=== PATIENT | female | born 1975 | race Caucasian/White ===

== ENCOUNTER → 2017-09-01 14:48 | Outpatient (CLI) | payer BC, SELFPAY ==
[2017-09-05 12:08] LABS: HPV APTIMA, High Risk Negative (Negative)
== END ==
PROVIDERS: Family Provider Student in an Organized Health Care Education/Training Program; PCP Student in an Organized Health Care Education/Training Program; Visit Provider Obstetrics & Gynecology
DX: Z12.4 Encounter for screening for malignant neoplasm of cervix (principal)
CPT/HCPCS: 88175; G0145

== ENCOUNTER → 2019-03-28 | Outpatient (CLI) | payer BC, SELFPAY ==
[2019-03-18 08:39] VITALS: BMI 30.2
--- NOTE | 2019-03-28 07:39 | BI_ITS ---
BILATERAL DIGITAL MAMMOGRAM WITH TOMOSYNTHESIS: Mediolateraloblique and craniocaudal views demonstrate no evidence of dominant parenchymal masses. No cluster of microcalcifications or architectural distortion is seen. No evidence of skin thickening is seen. No comparison images are available. Breast Density: The breast tissue is extremely dense which may lower the sensitivity of mammography. CAD was used to assist in final assessment. BI/SCREEN MAMM (CAD) W/ANUPAMA BILAT IMPRESSION: NORMAL MAMMOGRAM BILATERALLY. ASSESSMENT CATEGORY: FINAL ASSESSMENT: BI-RAD CATEGORY I (NEGATIVE) YEARLY MAMMOGRAPHY RECOMMENDED Approximately 10% of breast cancers are not detected by mammography. A normal mammogram should not delay biopsy of a clinically suspicious abnormality. [id number] Electronically Signed: Lenard Drake, at 17:00 EDT Tel , Service support ,
--- NOTE | 2019-03-28 07:39 | US_ITS ---
STUDY: ULTRASOUND TRANSVAGINAL CLINICAL: Female, 43 years old. Pain TECHNIQUE: Transvaginal COMPARISON: None FINDINGS: Normal uterine size measuring 9.1 x 5.7 x 4.6 cm in maximal craniocaudal dimension. There are no myometrial masses. Normal endometrial thickness measuring 5 mm. There are no endometrial masses, and there is no fluid in the endometrial cavity. Normal uterine cervix. Normal right ovary, measuring 2.3 x 3 x 2.5 cm. There are multiple follicles without a dominant cyst. Normal left ovary, measuring 3.9 x 2.6 x 2.3 cm. There is a left ovarian 1.9 x 1.9 x 1.2 cm cyst. There is no free fluid in the pelvis. US/Pelvic (Non ) IMPRESSION: No acute pelvic pathology identified. Dominant left ovarian cyst. Electronically Signed: Alirio Valerio, at 20:58 EDT Tel , Service support ,
--- NOTE | 2019-03-28 07:39 | US_ITS ---
STUDY: ULTRASOUND TRANSVAGINAL CLINICAL: Female, 43 years old. Pain TECHNIQUE: Transvaginal COMPARISON: None FINDINGS: Normal uterine size measuring 9.1 x 5.7 x 4.6 cm in maximal craniocaudal dimension. There are no myometrial masses. Normal endometrial thickness measuring 5 mm. There are no endometrial masses, and there is no fluid in the endometrial cavity. Normal uterine cervix. Normal right ovary, measuring 2.3 x 3 x 2.5 cm. There are multiple follicles without a dominant cyst. Normal left ovary, measuring 3.9 x 2.6 x 2.3 cm. There is a left ovarian 1.9 x 1.9 x 1.2 cm cyst. There is no free fluid in the pelvis. US/Transvaginal Non- IMPRESSION: No acute pelvic pathology identified. Dominant left ovarian cyst. Electronically Signed: Alirio Valerio, at 20:58 EDT Tel , Service support ,
== END | disposition home or self-care (01) ==
PROVIDERS: Family Provider Student in an Organized Health Care Education/Training Program; PCP Student in an Organized Health Care Education/Training Program; Referring Provider Nurse Practitioner Women's Health; Visit Provider Nurse Practitioner Women's Health
DX: R10.2 Pelvic and perineal pain (principal); R31.9 Hematuria, unspecified; Z12.31 Encounter for screening mammogram for malignant neoplasm of breast
CPT/HCPCS: 76830; 76856; 77063; 77067; 87086; 93976

== ENCOUNTER → 2019-04-11 | Outpatient (CLI) | payer BC, SELFPAY ==
[2019-03-18 08:39] VITALS: BMI 30.2
--- NOTE | 2019-04-11 07:54 | CT_ITS ---
STUDY: CT ABDOMEN AND PELVIS WITH AND WITHOUT CONTRAST REASON FOR EXAM: Female, 43 years old. Gross hematuria for one year. Urinary frequency. No history of surgery. RADIATION DOSAGE (If Supplied By Facility): CTDIvol = ( 20.97 ) mGy, DLP = ( 3263.35 ) mGycm TECHNIQUE: Transaxial images were obtained from the dome of the diaphragm to the symphysis pubis without oral contrast. IV Isovue 370 100mL was administered. Sagittal and coronal images were reconstructed. Individualized dose optimization techniques were used for this CT. COMPARISON: None. FINDINGS: There is minimal posterior dependent atelectasis, remainder of the visualized lung bases are unremarkable. The visualized portions of the heart are within normal limits. Normal liver. Normal gallbladder and extrahepatic biliary system. Normal spleen. Normal pancreas. Normal bilateral adrenal glands. There is a right middle renal pole stone measuring 6 mm. Otherwise normal right kidney. Normal left kidney. Normal visualized stomach. Normal small intestine. Is multilevel diverticulosis with no signs of diverticulitis. The appendix is visualized and appears normal. Normal abdominal aorta. Normal inferior vena cava. Normal retroperitoneum. The urinary bladder is partially distended with diffuse thickening of the wall, cannot exclude cystitis. The uterus is anteverted with enlargement of the venous structures bilaterally and tortuosity, left more than right, cannot exclude pelvic congestion syndrome. There are 2 adjacent left-sided adnexal cysts throughout there is a thin septation measuring 4.1 x 4.3 cm and 2.9 x 2.1 cm. Normal abdominal wall. There is minimal atelectasis of L5 on S1 with pars defect of L5. CT/CT Abd/Pelvis W/WO Contrast IMPRESSION: Left-sided ovarian cyst as described above measuring 4.3 cm and 2.9 cm in maximum dimension. Possible pelvic congestion syndrome, clinical correlation recommended. Mild thickening of urinary bladder wall which may indicate sequela of cystitis. Correlation with urinalysis recommended. Right middle pole renal stone measuring 6 mm. Remainder of abdominal viscera are unremarkable. Electronically Signed: Hellen Mischiu, MD at 2:26 EDT , Service support ,
== END | disposition home or self-care (01) ==
PROVIDERS: Family Provider Student in an Organized Health Care Education/Training Program; PCP Student in an Organized Health Care Education/Training Program; Referring Provider Urology; Visit Provider Urology
DX: R31.9 Hematuria, unspecified (principal); R39.89 Other symptoms and signs involving the genitourinary system
CPT/HCPCS: 74178; Q9967

== ENCOUNTER 2019-04-30 06:01 | Day surgery (SDC) | payer BC, SELFPAY ==
[2019-03-18 08:39] VITALS: BMI 30.2
[2019-04-30] VITALS (9 sets, daily range): BP systolic 100–137; BP diastolic 64–85; PULSE 74–108; RESP 16; TEMP 36.1–36.5; O2SAT 96–99; BMI 33.0
[2019-04-30 06:26] LABS: Internal QC Validated? YES +Cl - CLEAR BKGD; Pregnancy, Urine Negative Negative
[2019-04-30] MEDS: Lactated Ringers 1,000 ML 100 ML IV (06:33)
[2019-04-30] MEDS: Cefazolin 2 GM in 0.9% Normal Saline 100 ML IV (07:40)
--- NOTE | 2019-04-30 07:40 | OP.PCM_ITS ---
Problem List (1) Nocturia Status: Acute (2) Urgency of urination Status: Acute Comment: [place] of Myrbetriq and pelvic floor physical therapy (3) Dyspareunia Status: Acute (4) Frequency of micturition Status: Acute Report of Operation Date of Procedure: 04/30/19 Pre-Operative Diagnosis: urgency, frequency, nocturia, dyspareunia Post-Operative Diagnosis: same Surgery/Procedure Performed:: cystoscopy, hydrodistention, pelvic exam under anesthesia Description of Surgical Findings:: capacity 450cc. No glomerulations, no ulcerations. Mild trabeculation detrusor. Type of Anesthesia:: General Description of Procedure: The patient is a 43-year-old female with severe urinary frequency and urgency, nocturia and dyspareunia here for evaluation for possibility of diagnosis of interstitial cystitis. Informed consent was obtained. The patient was taken to the operating room placed on the operating room table. Anesthesia monitored the head, neck, airway, IV access and vital signs t hroughout the case. Once anesthesia was appropriately administered, the patient was placed in dorsal lithotomy position and was prepped and draped in usual sterile fashion. A pelvic examination was performed revealing no palpable trigger points in the pelvic floor, no pelvic organ prolapse. The cystoscope was inserted under direct visualization into the urinary bladder. Using a 70 degree lens, the entirety of the bladder mucosa was visualized. There were no masses, lesions, areas of erythema, ulcerations or foreign bodies identified. The ureteral orifices were located on the area of the trigone in correct anatomic position. The bladder was then filled to capacity and it was obvious that her capacity is very small, the detrusor muscles obviously trabeculated and thickened and there were no obvious diverticula present. The bladder was left to sit for 2 minutes at capacity which was measured at 450 cc. There is no terminal hematuria. There were no glomerulations identified upon reentry into the urinary bladder. Once again the bladder was filled to capacity left to sit for 2 minutes and then emptied. The capacity was approximately 500 cc. At this time the patient was awakened and taken to the recovery room in good condition. There were no complications during this procedure. - Complications none - Admit VTE Documentation VTE Present on Admission: Yes VTE Mechan Device Prophylaxis: SCD's VTE Pharm Prophylaxis ordered?: No
--- NOTE | 2019-04-30 07:41 | DCINST_ITS ---
Discharge Diet: No Restrictions Discharge Activity: May not drive while taking narcotic pain medications. Call your doctor if you observe: Fever of 101 or Higher, Inability to urinate, Shortness of breath, Chest pain, Calf discomfort, Uncontrolled pain Allergies/Adverse Reactions: Allergies No Known Allergies Allergy (Verified 04/24/19 11:44) Medications to take at Discharge multivitamin tablet 1 tab PO DAILY 03/18/19 norgestimate 0.25 mg-ethinyl estradiol 35 mcg tablet 1 tab PO QDAY #84 tab 03/18/19 Primary Care Physician: Donnie Peacock DO [Primary Care Provider] - Test Results: Test results from this visit will be discussed in further detail at your follow- up appointment, if applicable. Please Follow Up With: Molly Campbell MD When: call office for appt. Proposed Discharge Date: 04/30/19
[2019-04-30] MEDS: Lubricating Jelly 60 GM Tube 30 GM TOPICAL (07:52)
== END 2019-04-30 10:03 | disposition home or self-care (01) ==
LOC: SDC 06:04 → AC 06:04
PROVIDERS: Family Provider Student in an Organized Health Care Education/Training Program; PCP Student in an Organized Health Care Education/Training Program; Referring Provider Urology; Visit Provider Urology
PROC: 0T7B7ZZ Dilation of Bladder, Via Natural or Artificial Opening (ICD-10-PCS; CPT 52000; principal; 2019-04-30 07:20)
DX: R35.1 Nocturia (principal); R39.15 Urgency of urination; N94.10 Unspecified dyspareunia; R35.0 Frequency of micturition; Z87.440 Personal history of urinary (tract) infections; Z87.891 Personal history of nicotine dependence
CPT/HCPCS: 00910; 52000; 81025; J7120; J2405

== ENCOUNTER → 2020-12-11 06:36 | Outpatient (CLI) | payer BC, SELFPAY ==
[2019-04-30 06:21] VITALS: BMI 33.0
--- NOTE | 2020-12-11 06:42 | MRI_ITS ---
History: SPONDYLOSIS WITH RADICULOPATHY Technique: T1 and T2 MR imaging of the lumbar spine performed without contrast enhancement in axial and sagittal planes. CT abdomen and pelvis April 11, 2019 Findings: Alignment of the lumbar vertebral bodies is normal. No bone marrow edema. No significant disc space narrowing. Mild facet arthropathy at L4-5 and L5-S1. Conus medullaris and cauda equina are normal. Paraspinal soft tissues are normal. L1-2: No disc protrusion. Normal caliber spinal canal and neural foramina. L2-3: No disc protrusion. Normal caliber spinal canal and neural foramina. L3-4: No disc protrusion. Normal caliber spinal canal and neural foramina. L4-5: Left central disc protrusion causes narrowing of the left lateral recess. No significant spinal or neuroforaminal stenosis. L5-S1: Large left posterolateral disc herniation causes marked narrowing of the lateral recess and adjacent foramen. No significant spinal stenosis. MRI/Spine Lumbar (Routine) IMPRESSION: L4-5 and L5-S1 disc herniations causing narrowing of the left lateral recess at L4-5 and left lateral recess and left neural foramen at L5-S1. at 1553 Reported and signed by: Librado Quinteros MD Electronically Signed: Librado Quinteros MD at 15:52 EDT Tel , Service support ,
== END ==
PROVIDERS: PCP Student in an Organized Health Care Education/Training Program; Referring Provider Orthopaedic Surgery; Visit Provider Orthopaedic Surgery
DX: M47.26 Other spondylosis with radiculopathy, lumbar region (principal)
CPT/HCPCS: 72148

== ENCOUNTER → 2022-06-06 | Outpatient (CLI) | payer BC, SELFPAY | END | disposition home or self-care (01) | LOC: LABSPEC 11:06 | PROVIDERS: PCP Student in an Organized Health Care Education/Training Program; Visit Provider Registered Nurse | DX: R30.0 Dysuria (principal) | CPT/HCPCS: 87086; 87088 ==

== ENCOUNTER → 2022-07-11 | Outpatient (CLI) | payer BC, SELFPAY ==
[2022-07-11 09:06] LABS: Absolute Lymphocyte Count 1.11 X10^3/uL (0.83-4.51); Absolute Neutrophil Count 2.7 X10^3/uL (2.0-7.7); Basophil# 0.01 X10^3/uL; Basophil% 0.2 % (0-1); Eosinophil# 0.08 X10^3/uL; Eosinophils% 1.9 % (0-5); Hematocrit 44.8 % (37-47); Hemoglobin 14.6 g/dL (12.0-15.0); Lymphocyte # 1.11 X10^3/ul (0.83-4.51); Lymphocyte % 26.9 % (19-41); Mean Corp Hgb Conc 32.6 g/dL (32-36); Mean Corpuscular Hgb 30.9 pg (27.0-32.0); Mean Corpuscular Volume 94.9 fL (81-99); Mean Platelet Vol. 9.1 fl (6.2-12.0); Monocyte# 0.25 X10^3/uL; Monocyte% 6.1 % (0-10); NRBC Flagged by Analyzer 0 % (0-5); Neutrophil # 2.65 X10^3/uL (2.7-7.7); Neutrophil % 64.4 % (47-70); Platelet Count 247 K/mm3 (150-450); RBC Distribution Width CV 11.9 % (11.6-14.6); RBC Distribution Width SD 41.9 fl (35.1-43.9); Red Blood Count 4.72 M/mm3 (4.2-5.4); White Blood Count 4.1 K/mm3 (4.4-11.0)
[2022-07-14 18:50] LABS: HPV APTIMA, High Risk Negative (Negative)
== END | disposition home or self-care (01) ==
PROVIDERS: Registered Nurse; PCP Student in an Organized Health Care Education/Training Program; Referring Provider Nurse Practitioner Women's Health; Visit Provider Nurse Practitioner Women's Health
DX: Z12.4 Encounter for screening for malignant neoplasm of cervix (principal); N92.0 Excessive and frequent menstruation with regular cycle
CPT/HCPCS: 36415; 85025; 87624; 88175; G0145

== ENCOUNTER → 2022-07-26 | Outpatient (CLI) | payer BC, SELFPAY ==
--- NOTE | 2022-07-26 16:30 | EMB_PTH ---
PATIENT: CHUCK BECK LOC: [facility] U#:[id number] AGE/SX: 46/F ROOM: RE07/26/[address]: Dr. Maryjo Isaacs DO : 1975 BED: DIS: 07/26/2022 SPEC #: [id number] RECD: 07/26/22 17:37 STATUS: ROSANGELA RICKS #: [id number] LEVY: 07/26/22 16:[address]: Maryjo Isaacs DEPT: SURGICAL PATHOLOGY RECD BY: Yumiko Infante ENTERED: 07/27/22 08:33 SP TYPE: ENDOM BX/C AIDAHR DR: Dr. Laci Devlin DO Tissues: Endometrium, NOS Procedures: Surgery Specimen Level IV HEADER OPERATION: Endometrial biopsy PRE-OP DIAGNOSIS: Heavy menses TISSUE SUBMITTED: Endometrial lining MICROSCOPIC DIAGNOSIS Endometrial biopsy: Secretory endometrium. SJ:anuj 07/28/2022 MICROSCOPIC DESCRIPTION Slides are reviewed. GROSS DESCRIPTION Received is one container labeled with the patient's name and not further designated. The specimen consists of multiple irregular fragments of pink soft tissue that in aggregate measure 2.5 x 2.5 x 0.2 cm. The specimen is totally submitted in one cassette. / SJ:anuj 07/27/2022 TC:4 CPT: 08633
== END | disposition home or self-care (01) ==
PROVIDERS: PCP Student in an Organized Health Care Education/Training Program; Visit Provider Obstetrics & Gynecology
DX: N92.0 Excessive and frequent menstruation with regular cycle (principal)
CPT/HCPCS: 88305

== ENCOUNTER 2022-09-13 13:48 | Day surgery (SDC) | payer BC, SELFPAY ==
[2022-09-13] VITALS (8 sets, daily range): BP systolic 113–127; BP diastolic 73–79; PULSE 72–84; RESP 15–16; TEMP 36.1–36.5; O2SAT 95–100; BMI 30.7
--- NOTE | 2022-09-13 11:26 | PCM.HP.BLA ---
History and Physical Date of Admission: 09/13/22 Intake Vital Signs ? 08/30/2310:06 08/30/2310:08 Height 5 ft 6 in 5 ft 6 in Weight: 192 lb ? BMI 30.9 ? BP 127/79 H ? 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 Abnormal Pap smear of cervix Anxiety and depression Urge incontinence Social History? Smoking Status:? Former smoker alcohol intake:? never substance use type:? does not use caffeine:? Yes what type of physical activity do you participate in:? none seatbelt use:? always do you feel safe at home:? Yes additional social history:? 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 Pt states that she passes large clots. She has called her insurance company and they will not cover a hysterectomy until she has tried an ablation procedure first. Her uterus measures 9 cm without fibroids.? Her EMB was benign.? She is scheduled for a uterine ablation procedure. History ? ? ? 2 ? Elective abortions ? Hx Para ? ? ? 2 ? Spontaneous abortions ? Hx # Term Pregnancies ? Ectopic pregnancies ? Hx # Pregnancies ? Multiple births ? # of living children ? Past Pregnancies Del. Date Name GA/Weeks Outcome Route Bth Weight Infant Gen Labor Lgth Anesthesia Del Locatn Provider FOB Unknown 2000 uJmana ? Unknown 2004 Kristie ? ROS Const ROS Unobtainable: All systems reviewed & are unremarkable except as noted in H Resp Resp: Reports system reviewed and no additional complaints, except as documented; Denies cough GI GI: Reports as per HPI Psych Psych: Reports system reviewed and no additional complaints, except as documented Exam Const General: cooperative, healthy appearing, comfortable and no acute distress Resp Effort & Inspection: normal respiratory effort Skin General: no rashes or lesions noted Psych Appearance: grossly normal Speech and Movement: speech and movement normal Coding Level of Care Code Off vis,est,level 4 Diagnoses Heavy menses? N92.0 Assessment and Plan Assessment and Plan (1) Heavy menses: ?Status:?Acute ?Comment: CBC. Nl US.? Ariella JV for surgical consult/most interested in ablation Plan plan for hysteroscopy radha ablation After discussing the patient's diagnosis and treatment plan options, patient wishes to proceed with surgical management.? I have discussed with the patient the risks, benefits, and alternatives of the procedure which include but are not limited to risks of anesthesia, bleeding, infection, possible damage to bowel, bladder, or surrounding vasculature which could lead to additional surgery to evaluate any complications.? Patient agrees to procedure and wishes to proceed.? ACOG/uptodate references given for additional information regarding procedure.?
[2022-09-13 14:27] LABS: Internal QC Validated? YES +Cl - CLEAR BKGD; Pregnancy, Urine Negative Negative
[2022-09-13 14:36] LABS: Hematocrit 41.3 % (37-47); Hemoglobin 13.9 g/dL (12.0-15.0); Mean Corp Hgb Conc 33.7 g/dL (32-36); Mean Corpuscular Hgb 32.1 pg (27.0-32.0); Mean Corpuscular Volume 95.4 fL (81-99); Mean Platelet Vol. 9.3 fl (6.2-12.0); Platelet Count 217 K/mm3 (150-450); RBC Distribution Width CV 12.8 % (11.6-14.6); RBC Distribution Width SD 45.1 fl (35.1-43.9); Red Blood Count 4.33 M/mm3 (4.2-5.4)
--- NOTE | 2022-09-13 15:15 | EMB_PTH ---
PATIENT: CHUCK BECK LOC: [facility] [place] U#:[id number] AGE/SX: 46/F ROOM: RE09/13/[address]: Dr. Maryjo Isaacs DO : 1975 BED: DIS: 09/13/2022 SPEC #: [id number] RECD: 09/14/22 09:48 STATUS: ROSANGELA RICKS #: [id number] LEVY: 09/13/22 15:[address]: Maryjo Isaacs DEPT: SURGICAL PATHOLOGY RECD BY: Yumiko Infante ENTERED: 09/14/22 11:35 SP TYPE: ENDOM BX/C OTHR DR: Dr. Laci Devlin DO Tissues: Endometrium, NOS Procedures: Surgery Specimen Level IV HEADER OPERATION: Radha ablation, D & C PRE-OP DIAGNOSIS: Heavy menses TISSUE SUBMITTED: Endometrial curettings MICROSCOPIC DIAGNOSIS Endometrium, curettings: Secretory endometrium. AM:anuj 09/15/2022 MICROSCOPIC DESCRIPTION Slides are reviewed. GROSS DESCRIPTION Received in fixative is one container labeled with the patient's name and designated endometrial curettings. The specimen consists of multiple irregular fragments of pink-ovalle soft tissue that in aggregate measure 7.0 x 5.0 x 0.2 cm. The specimen is totally submitted in two cassettes. / AM:anuj 09/14/2022 TC:5 CPT: 66416
--- NOTE | 2022-09-13 15:55 | DCINST_ITS ---
Discharge Instructions Diet Discharge Diet: No restrictions Activity Discharge Activity: Return to Normal Activity, May Shower and May Take a Tub Bath (after 1 week) May resume sexual activity in: 1-2 weeks Weight Bearing Status: Weight bearing as tolerated Lifting Restrictions: none Dressing / Incision Call your doctor if you observe: Fever of 101 or Higher, Using more than 1 pad per hour, Shortness of breath and Uncontrolled pain Follow Up Care Please Follow Up With: Maryjo Isaacs DO When: Call [phone] to schedule appointment. Test Results: Test results from this visit will be discussed in further detail at your follow- up appointment, if applicable. Discharge Plan Admission Primary Reason for Your Visit: hysteroscopy D&C, adelaida ablation Attending Provider: Maryjo Isaacs Primary Care Provider: Laci Devlin Discharge Orders/Prescriptions Prescriptions: New oxycodone-acetaminophen [Percocet] 5-325 mg tablet 1 tab PO Q4H PRN (Reason: pain) 7 Days Qty: 15 0RF Rx Instructions: 1-2 tabs q 4 hrs as needed for pain naproxen 500 mg tablet 500 mg PO BID PRN (Reason: pain) Qty: 30 0RF Continued multivitamin Tablet 1 tab PO DAILY citalopram 20 mg tablet 20 mg PO DAILY Referrals / Follow Up: Laci Devlin DO [Primary Care Provider] - Disposition Disposition (needs filled in before D/C Order can be placed): Home, Self Care
--- NOTE | 2022-09-13 17:09 | PCM.OP.BLANK ---
Problems Associated Problem List Diagnoses (1) Heavy menses: Operative Report Date of Procedure: 08/10/21 preoperative diagnosis: heavy menses Postoperative diagnosis: heavy menses Surgeon: Dr. Maryjo Isaacs DO EBL: minimal (less than 5 cc) urine output: 100cc findings: proliverative appearing endometrium, possible posterior uterine polpy specimens removed: endometrial curettings Procedure: Hysteroscopy D&C Radha albation Details of the procedure: Patient was prepped and draped in a normal sterile fashion under MAC anesthesia. A weighted speculum was placed in the vagina and the anterior lip of the cervix was grasped with a single-tooth tenaculum. A paracervical block was placed with 1% lidocaine. Cervix was progressively dilated to allow passage of a 5 mm hysteroscope. The lining was fully visualized and noted to have a proliferative appearing lining. Uterine sounded to 9 cm. The cervix length was measured at 4.5 cm. A Curettage was performed and specimen was sent to pathology. Next the radha device was inserted into the uterus. The bulb was inflated and the device passed 2 safety checks. The device was activated and a burn for [address] A second look with the hysteroscope showed adequate burning of the endometrium. All instruments were removed from the vagina and excellent hemostasis was noted. Patient was awoken and taken to recovery in stable condition. Procedures Urinary/Genital 52xxx-59xxx: 43317 Hysteroscopy, EMC,Polypectomy Multi Select Codes Urinary/Genital Urinary/Genital CPT Codes: 99139 Hysteroscopy,EMC, Polypectomy
[2022-09-13] MEDS: HYDROcodone Bitartrate/Apap 5/325 Tablet PO (18:04)
== END 2022-09-13 18:45 | disposition home or self-care (01) ==
LOC: SDC 13:51 → AC 13:51
PROVIDERS: Anesthesiology; PCP Student in an Organized Health Care Education/Training Program; Referring Provider Obstetrics & Gynecology; Visit Provider Obstetrics & Gynecology
PROC: 0U5B8ZZ Destruction of Endometrium, Via Natural or Artificial Opening Endoscopic (ICD-10-PCS; CPT 58558; principal; 2022-09-13 15:00)
DX: N92.0 Excessive and frequent menstruation with regular cycle (principal); Z87.891 Personal history of nicotine dependence
CPT/HCPCS: 58558; 00952; 81025; 85027; 86850; 86900; 86901; 88305; J7120; J2405

== ENCOUNTER → 2023-07-18 | Outpatient (CLI) | payer BC, SELFPAY ==
--- OUTSIDE RECORDS SUMMARY | 2023-07-18 07:20 | XMS RPT_ITS | CCD ---
Author Name Unknown Address [address] [place] [address] Organization [facility] Care Team Providers Care Boiler Room Helper Name Role Phone Donnie Peacock Primary Care Provider [phone] Edith Evans Unavailable Unavailable Ector Sierra Unavailable DR MI GARCIA DO Primary Care Physician [phone] MI GARCIA Attending Unavailable MI GARCIA Primary Care Unavailable MI GARCIA Primary Care Unavailable PATO FITZGERALD Attending Unavailable Medications Current Medications Medication Drug Class(es) Dates Sig (Normalized) Sig (Original) 8 hr acetaminophen 650 mg extended release oral tablet (2 sources) Start: 12-30-2020 Tylenol 8 HR Arthritis Pain 650 mg oral tablet, extended release Dose : 1,300 mg = 2 tab(s), Oral, q8h, 0 Refill(s) Start Date: 12/30/20 Status: Ordered citalopram 20 mg oral tablet (2 sources) Serotonin Reuptake Inhibitor Start: 09-30-2020 citalopram 20 mg oral tablet Dose : 20 mg = 1 tab(s), Oral, qDay, 0 Refill(s) Start Date: 09/30/20 Status: Ordered Problems Problem Classification Problem Date Documented Da te Episodic/Chronic Calculus of urinary tract (2 sources) Kidney stone 10-09-2020 Episodic Diabetes mellitus without complication (4 sources) Hyperglycemia; Translations: [Prediabetes] 10-01-2020 Episodic Diseases of white blood cells (2 sources) Leukopenia 2020 Chronic Intracranial injury (2 sources) History of concussion injury of brain 09-30-2020 Episodic Mood disorders (2 sources) Recurrent major depressive episodes, moderate 09-30-2020 Chronic Other acquired deformities (2 sources) Spondylolisthesis 10-09-2020 Episodic Other acquired deformities (2 sources) Spondylolysis 10-09-2020 Episodic Other and ill-defined heart disease (2 sources) 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 Other female genital disorders (1 source) Enlarged uterus 03-23-2022 Episodic Other gastrointestinal disorders (1 source) Abdominal mass 03-23-2022 Episodic Other liver diseases (2 sources) Steatosis of liver 11-06-2020 Chronic Other liver diseases (2 sources) Elevated liver enzymes level 10-01-2020 Episodic Other lower respiratory disease (2 sources) Dyspnea on exertion 09-30-2020 Episodic Other nervous system disorders (2 sources) Numbness and tingling sensation of skin 09-30-2020 Episodic Other nutritional; endocrine; and metabolic disorders (2 sources) Body mass index 30+ - obesity 12-03-2020 Chronic Other skin disorders (2 sources) Loss of hair 09-30-2020 Episodic Residual codes; unclassified (1 source) Family history of carrier of genetic disease; Translations: [Family history of gene mutation] Episodic Residual codes; unclassified (1 source) Family history of malignant neoplasm of digestive organs; Translations: [Family history of gastric cancer] Episodic Rheumatoid arthritis and related disease (2 sources) Arthropathy of lumbar facet joint 12-30-2020 Chronic Spondylosis; intervertebral disc disorders; other back problems (4 sources) Disorder of lumbar disc; Translations: [Prolapsed lumbar intervertebral disc] 12-30-2020 Chronic Spondylosis; intervertebral disc disorders; other back problems (2 sources) Chronic low back pain 09-30-2020 Episodic Thyroid disorders (2 sources) Goiter 09-30-2020 Chronic Unclassified (2 sources) Glomerular filtration rate decreased 10-01-2020 Results Test Name Value Interpretation Reference Range Facil ity Encounters Encounter Date Encounter Type Care Provider Facility Start: 04-19-2022 End: 04-20-2022 ambulatory MI GARCIA Facility:[facility] Start: 04-19-2022 End: 04-19-[address] MI GARCIA DO 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 [facility] Start: 06-29-2020 End: 06-29-2020 Subsequent hospital visit by physician Ector Sierra Work Phone: [facility] Procedures Date Procedure Procedure Detail Performing Clinician Tonsillectomy and adenoidectomy PATO FITZGERALD DIAL SCREW ASSEMBLER-WOUND CARE SPECIALIST Plan of Treatment Date Care Activity Detail Author Start: 02-18-2020 FLU (#1) FLU (#1) [facility] Start: 1996 Hepatitis B (1 of 3 - Risk 3-dose series) Hepatitis B (1 of 3 - Risk 3-dose series) [facility] Start: 1993 MenB (1 of 2 - MenB 2-Dose Series) MenB (1 of 2 - MenB 2-Dose Series) [facility] Start: 1984 Tetanus Diphtheria a nd Pertussis Vaccines (1 - Tdap) Tetanus Diphtheria and Pertussis Vaccines (1 - Tdap) [facility] Start: 1978 Hepatitis A (1 of 2 - Risk 2-dose series) Hepatitis A (1 of 2 - Risk 2-dose series) [facility] Start: 1978 MMR (1 of 1 - Standa rd series) MMR (1 of 1 - Standard series) [facility] Start: 1978 Varicella (1 of 2 - 2-dose childhood series) Varicella (1 of 2 - 2-dose childhood series) [facility] End: 06-29-2020 Genetic Sendout: Single Gene: CDH1 Genetic Sendout: Single Gene: CDH1 Lab Timed Family history of gene mutation Family history of gastric cancer 1 Occurrences starting 06/29/2020 until 06/29/2020 [facility] Payers Date Payer Category Payer Unknown [id number] 2018 Unknown BARB JUAREZ BS PPO [id number] 2018-Present [address] [place] [address] [id number] 1975 Unknown [id number] 1975 Unknown [id number] Social History Date Type Detail Facility Start: 06-29-2020 End: 09-30-2020 Tobacco smoking status LAIS Never smoker [facility] Start: 06-29-2020 Tobacco use and exposure Never used [facility] Start: 1975 Sex Assigned At Not on file A [facility] Exposure to SARS-CoV -2 (event) Not sure [facility] Sex Assigned At Sex [facility] Clinical Notes 11-03-2020 to 04-19-2022 RadiologyRadiology Note Date & Type Note Facility 04-19-2022 Note ORIGINAL EXAMINATION: PELVIC ULTRASOUND 04/19/2022 TECHNIQUE: Transabdominal and endovaginal pelvic ultrasound was performed. Color Doppler interrogation performed. COMPARISON: None HISTORY: ORDERING SYSTEM PROVIDED HISTORY: Reason for Exam: enlarged uterus on exam FINDINGS: Measurements: Uterus: 8.9 x 5.1 x 4.4 cm Endometrial stripe: 13 mm Right Ovary:3.3 x 1.6 x 1.7 cm Left Ovary: 4.2 x 2.6 x 1.9 cm Ultrasound Findings: Uterus: The uterus is retroverted. No focal myometrial masses are identified. Endometrial stripe: Endometrium is homogeneous with no focal lesions seen. Right Ovary: Right ovary is within normal limits. Left Ovary: Left ovary is within normal limits. A rounded echogenic portion of the left ovary measuring 19 mm in size is noted, probably the result of a ruptured follicle. Ovarian color Doppler interrogation is unremarkable bilaterally. Free Fluid: No evidence of free fluid. IMPRESSION: Retroverted uterus without focal mass. Interpreted by: Maximiliano Castillo MD Preliminary Report By: Maximiliano Castillo MD Electronically signed By Maximiliano Castillo MD Dictated Date: 04/19/2022 3:33:34 PM Prelim Date: 04/19/2022 3:37:19 PM Sign Date: 04/19/2022 3:37:19 PM Ordering Provider: [facility] 04-19-2022 Note ORIGINAL EXAMINATION: PELVIC ULTRASOUND 04/19/2022 TECHNIQUE: Transabdominal and endovaginal pelvic ultrasound was performed. Color Doppler interrogation performed. COMPARISON: None HISTORY: ORDERING SYSTEM PROVIDED HISTORY: Reason for Exam: enlarged uterus on exam FINDINGS: Measurements: Uterus: 8.9 x 5.1 x 4.4 cm Endometrial stripe: 13 mm Right Ovary:3.3 x 1.6 x 1.7 cm Left Ovary: 4.2 x 2.6 x 1.9 cm Ultrasound Findings: Uterus: The uterus is retroverted. No focal myometrial masses are identified. Endometrial stripe: Endometrium is homogeneous with no focal lesions seen. Right Ovary: Right ovary is within normal limits. Left Ovary: Left ovary is within normal limits. A rounded echogenic portion of the left ovary measuring 19 mm in size is noted, probably the result of a ruptured follicle. Ovarian color Doppler interrogation is unremarkable bilaterally. Free Fluid: No evidence of free fluid. IMPRESSION: Retroverted uterus without focal mass. Interpreted by: Maximiliano Castillo MD Preliminary Report By: Maximiliano Castillo MD Electronically signed By Maximiliano Castillo MD Dictated Date: 04/19/2022 3:33:34 PM Prelim Date: 04/19/2022 3:37:19 PM Sign Date: 04/19/2022 3:37:19 PM Ordering Provider: [facility] 08-06-2021 Note HNO ID: [id number] Author: Mimi Navarro APRN.[facility] Service: ? Author Type: Nurse Practitioner Type: Progress Notes Filed: 08/06/2021 6:46 PM Note Text: Subjective Patient came in with complaints of frequency, burning, and urgency. amira said she is diagnoses with a kidney stone a few days ago. patient does have a urologist. Patient also said she has white vaginal discharge and itching. Patient does have a history of yeast infections. Patient said it does feel like a yeast infection. Patient denies any fever, nausea, or vomiting. patient does have some back pain but rates it at a 4/10. Patient denies any other symptoms at this time. Review of Systems Constitutional: Negative. Skin: Negative. Objective Physical Exam Constitutional: Appearance: Normal appearance. Pulmonary: Effort: Pulmonary effort is normal. Breath sounds: Normal breath sounds. Abdominal: General: Abdomen is flat. Bowel sounds are normal. Palpations: Abdomen is soft. Neurological: Mental Status: She is alert. PAST MEDICAL HISTORY Diagnosis Date - Anal fissure - Nephrolithiasis PAST SURGICAL HISTORY Procedure Laterality Date - ADENOIDECTOMY PRIMARY Adenoidectomy - CYSTOSCOPY 04/30/2019 Dr. Molly Campbell, [facility] - MYRINGOTOMY ASPIRAND/EUSTACHIAN TUBE NFLT ANES Myringotomy/tubes - TONSILLECTOMY PRIMARY/SECONDARY Tonsillectomy ALLERGIES Environmental [Other] and Seasonal Allergies [Other] MEDICATIONS citalopram (CELEXA) 20 mg tablet Take 20 mg by mouth once daily. MULTIVITAMIN TAB Take one(1) tablet daily. Miconazole Nitrate (MONISTAT 3) 200 mg/5 gram (4 %) crea Use 1 Applicator vaginally once daily for 3 days. phenazopyridine (PYRIDIUM) 200 mg tablet Take 1 tablet by mouth three times daily as needed. SPRINTEC 0.25-35 mg-mcg per tablet Take only active pills; discard inactive and start new pack immediatley naproxen (NAPROSYN) 500 mg tablet Take 1 tablet by mouth twice daily with meals. Take with food. oxybutynin XL (DITROPAN XL) 5 mg 24 hr tablet Take 1 tablet by mouth once daily. predniSONE (DELTASONE) 10 mg tablet Take 4 tabs daily X 3 days then 2 tabs daily for 3 days then 1 tab daily X 3 days with food COMPOUNDED PRESCRIPTION Diltiazem/ nifedipine 2% vasoline ointment-apply to rectum twice daily ketoconazole (NIZORAL) 2 % cream Apply 1 application to affected area once daily. FLUoxetine (PROZAC) 20 mg capsule Take 1 capsule by mouth once daily. LORATADINE (CLARITIN ORAL) Take by mouth. COMPOUNDED PRESCRIPTION Apply to affected area twice daily. Diltiazem 2% ointment. Apply to rectum twice daily as directed.. FAMILY HISTORY Problem Relation Age of Onset - Thyroid Mother - other (Gerd) Mother - Hypertension Father - Diabetes Father - Stroke Father - Heart Father [place] - Cancer Father Leukemia/prostate - Cancer Maternal Grandmother lymphoma - Cancer Maternal Grandfather prostate - Stroke Paternal Grandmother - Coronary Artery Disease Paternal Grandmother - Coronary Artery Disease Paternal Grandfather Social History Tobacco Use - Smoking status: Never Smoker - Smokeless tobacco: Never Used Substance Use Topics - Alcohol use: Yes Comment: Seldom - Drug use: No ASSESSMENT/PLAN: 1. Urinary frequency - ICD9: 788.41, ICD10: R35.0 - UA DIP, URINE (POC) - URINE CULTURE At this time patent was prescribed monistat cream to use as directed. Patient urine will be sent for culture just to be sure. Patient will be prescribed medication if culture comes back positive for any bacteria. Patient was instructed to go tot he ER if anything changes or new symptoms develop. Patient was encouraged to follow up with her urologist on Monday. Mimi Navarro APRN.[facility] 01-08-2021 Note Patient Outreach (IN TMMN) CHUCK BECK ([id number]) 1975 [facility] Date Time Provider Department 01/08/21 DONNIE PEACOCK During your visit today, we recorded the following information about you: Allergies As of Date: 01/08/2021 Noted Allergy Reaction Environmental [Other] 12/14/2009 Seasonal Allergies [Other] 10/23/2008 Date Reviewed: 03/02/2019 Reviewed by: Ragini Pena [facility] - Fully Assessed Visit Diagnosis:Encounter for screening mammogram for breast cancer [Z12.31] Order(s):[facility] SCREENING [[id number]] Order #: [id number] FUTURE Prescriptions as of 01/11/2021 - phenazopyridine (PYRIDIUM) 200 mg tablet Take 1 tablet by mouth three times daily as needed. - SPRINTEC 0.25-35 mg-mcg per tablet Take only active pills; discard inactive and start new pack immediatley - naproxen (NAPROSYN) 500 mg tablet Take 1 tablet by mouth twice daily with meals. Take with food. - oxybutynin XL (DITROPAN XL) 5 mg 24 hr tablet Take 1 tablet by mouth once daily. - predniSONE (DELTASONE) 10 mg tablet Take 4 tabs daily X 3 days then 2 tabs daily for 3 days then 1 tab daily X 3 days with food - COMPOUNDED PRESCRIPTION Diltiazem/ nifedipine 2% vasoline ointment-apply to rectum twice daily - ketoconazole (NIZORAL) 2 % cream Apply 1 application to affected area once daily. - FLUoxetine (PROZAC) 20 mg capsule Take 1 capsule by mouth once daily. - LORATADINE (CLARITIN ORAL) Take by mouth. - COMPOUNDED PRESCRIPTION Apply to affected area twice daily. Diltiazem 2% ointment. Apply to rectum twice daily as directed.. - MULTIVITAMIN TAB Take one(1) tablet daily. Problem List As Of Date 01/08/2021 Noted Resolved Anal fissure [K60.2] 08/31/2011 Cervical myofascial strain [S16.1XXA] 08/27/2015 OAB (overactive bladder) [N32.81] 10/08/2015 Encounter Status:Closed by [facility] on 01/11/21 [facility] 11-03-2020 Note HNO ID: [id number] Author: Hanny Duke Service: ? Author Type: ? Type: Progress Notes Filed: 11/03/2020 2:03 PM Note Text: POPULATION HEALTH NAVIGATION OUTREACH Action/FYI Left message and sent [employer] message to schedule mammogram. Contact made with patient or family member? NO Pt identified by name and : NO Outreach Outcome/Action Unable to reach patient: Left message [employer] message sent Reason for Outreach Care Gap or Scheduling/Wellness visits Payer: Payor: BARB / Plan: BLUE ACCESS PPO / Product Type: PPO / Care Gap Reviewed:: Breast Cancer screening Reminder: Reminder note to check Health Maintenance for items below Health Maintenance items due: HEPATITIS C SCREENING Never done HIV SCREENING Never done DTAP,TDAP,TD(1 - Tdap) Never done PAP TESTING due on 09/13/2016 HPV TESTING due on 09/13/2016 DEPRESSION SCREENING due on 12/31/2016 MAMMOGRAM due on 03/28/2020 Advanced Directives Completed: Have you ever planned for future healthcare decisions with a power of civil litigation attorney, living will, or advance directives? Referrals: Message Sent to Practice: Navigation Signature: Hanny Duke November 03, 2020 2:02 PM [facility] 11-03-2020 Note Patient Outreach (PE DSAP) CHUCK BECK ([id number]) 1975 F [place] Date Time Provider Department 11/03/20 HANNY DUKE During your visit today, we recorded the following information about you: Hanny Duke 11/03/2020 2:03 PM Signed POPULATION HEALTH NAVIGATION OUTREACH Action/FYI Left message and sent [employer] message to schedule mammogram. Contact made with patient or family member? NO Pt identified by name and : NO Outreach Outcome/Action Unable to reach patient: Left message MyChart message sent Reason for Outreach Care Gap or Scheduling/Wellness visits Payer: Payor: BARB / Plan: [employer] PPO / Product Type: PPO / Care Gap Reviewed:: Breast Cancer screening Reminder: Reminder note to check Health Maintenance for items below Health Maintenance items due: HEPATITIS C SCREENING Never done HIV SCREENING Never done DTAP,TDAP,TD(1 - Tdap) Never done PAP TESTING due on 09/13/2016 HPV TESTING due on 09/13/2016 DEPRESSION SCREENING due on 12/31/2016 MAMMOGRAM due on 03/28/2020 Advanced Directives Completed: Have you ever planned for future healthcare decisions with a power of civil litigation attorney, living will, or advance directives? Referrals: Message Sent to Practice: Navigation Signature: Hanny Duke November 03, 2020 2:02 PM Allergies As of Date: 11/03/2020 Noted Allergy Reaction Environmental [Other] 12/14/2009 Seasonal Allergies [Other] 10/23/2008 Date Reviewed: 03/02/2019 Reviewed by: Ragini Pena [facility] - Fully Assessed Reason for Visit: Population Health Navigation Outreach [3910] Cmt: Deferred Care Prescriptions as of 11/03/2020 Sig: PHENAZOPYRIDINE 200 MG TABLET Take 1 tablet by mouth three * SPRINTEC (28) 0.25 MG-35 MCG * Take only active pills; disca* NAPROXEN 500 MG TABLET Take 1 tablet by mouth twice * Patient not taking: Reported on 03/02/2019 OXYBUTYNIN CHLORIDE ER 5 MG T* Take 1 tablet by mouth once d* Patient not taking: Reported on 03/02/2019 PREDNISONE 10 MG TABLET Take 4 tabs daily X 3 days th* COMPOUNDED PRESCRIPTION Diltiazem/ nifedipine 2% vaso* Patient not taking: Reported on 03/02/2019 KETOCONAZOLE 2 % TOPICAL CREAM Apply 1 application to affect* FLUOXETINE 20 MG CAPSULE Take 1 capsule by mouth once * Patient not taking: Reported on 03/02/2019 CLARITIN ORAL Take by mouth. * COMPOUNDED PRESCRIPTION Apply to affected area twice* Patient not taking: Reported on 03/02/2019 * MULTIVITAMIN TABLET Take one(1) tablet daily. Problem List As Of Date 11/03/2020 Noted Resolved Anal fissure [K60.2] 08/31/2011 Cervical myofascial strain [S16.1XXA] 08/27/2015 OAB (overactive bladder) [N32.81] 10/08/2015 Encounter Status:Closed by HANNY DUKE on 11/03/20 [facility] Evaluation + Plan note Future Appointments Appointment Date:03/23/2022 08:00:00 AM Scheduled Provider:MI GARCIA DO Location:[facility] Appointment Type:PC Wellness Annual Future Scheduled TestsUS Abdomen Limited 02/17/[address] [facility] Evaluation + Plan note Future Appointments Appointment Date:04/21/2022 08:00:00 AM Scheduled Provider:MI GARCIA DO Location:[facility] Appointment Type:PC Office Procedure OMT Appointment Date:05/02/2022 08:30:00 AM Scheduled Provider: Location:[facility] Appointment Type:CV IRONER HAND Future Scheduled TestsUS Soft Tissue Mass of Abd/Mid Back 03/23/22US Abdomen Limited 02/17/[address] [facility] Hospital course Narrative No data available for this section [facility] Hospital Discharge instructions No data available for this section [facility] Progress note No data available for this section [facility] Reason for Referral Status Reason Specialty Diagnoses / Procedures Referred By Contact Referred To Contact [facility] Required Lab Diagnoses Family history of gene mutation Family history of gastric cancer Procedures Genetic Sendout: Single Gene: CDH1 Ector Sierra MD [address] [place] [address], [facility] [address] [place] [id number] Assessments Diagnosis Family history of gene mutation Family history of gastric cancer Family history of malignant neoplasm of gastrointestinal tract Advance Directives No Advanced Directives Records FoundDocuments on File Type Date 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 Summary Purpose Family History No Family History Records FoundNo Family History Records Found Additional Source Comments Reason for Visit (unrecogniz ed section and content) INFORMATION SOURCE (unrecogn ized section and content) DATE CREATED AUTHOR AUTHOR'S ORGANIZ ATION 04/22/2022 [facility] ([place]) Care Team (unrecognized sect ion and content) Care Team Personnel Name: MI GARCIA DO Position: P4 Physician - Primary Care Member Role: Primary Care Physician Address: Address: [address] [place] [address] Care Team Related Persons Name: ALMA ROSA BECK Address: Home [address] [place] [phone] Address: Temporary [address] [place] [phone] Name: KERI BECK Care Team Personnel Name: MI GARCIA DO Position: P4 Physician - Primary Care Member Role: Primary Care Physician Address: Address: [address] [place] [address] Care Team Related Persons Name: ALMA ROSA BECK Address: Home [address] [place], [place] [id number] Address: Temporary [address] [place] [phone] Name: KERI BECK FOR RECORDS PERTAINING TO PATIENTS WHO ARE OR HAVE BEEN ENROLLED IN A CHEMICAL DEPENDENCY/SUBSTANCEABUSE PROGRAM, SOME INFORMATION MAY BE OMITTED. This clinical summary was aggregated from multiple sources. Caution should be exercised in using it in the provision of clinical care. This summary normalizes information from multiple sources, and as a consequence, information in this document may materially change the coding, format and clinical context of patient data. In addition, data may be omitted in some cases. CLINICAL DECISIONS SHOULD BE BASED ON THE PRIMARY CLINICAL RECORDS. [facility] [facility]. provides no warranty or guarantee of the accuracy or completeness of information in this document.
--- NOTE | 2023-07-18 07:28 | MRI_ITS ---
STUDY: MRI LUMBAR SPINE WITHOUT CONTRAST REASON FOR EXAM: Female, 47 years old. DDD, RADICULOPATHY TECHNIQUE: Standardized fat and water weighted pulse sequences were obtained in the sagittal and axial planes. COMPARISON: MRI the lumbar spine dated December 11, 2020 FINDINGS: Normal lumbar lordosis. There is a levoscoliosis of the lumbar spine. Normal conus medullaris that terminates at the T12-L1 level. No marrow edema or fracture or compression deformity is present. Chronic bilateral L5 pars interarticularis defects. T12-L1: Normal endplates. Normal disc height, hydration and morphology. Normal bilateral facet joints. Normal central canal and bilateral lateral recesses. Normal bilateral intervertebral neural foramina. L1-2: Normal endplates. Normal disc height, hydration and morphology. Normal bilateral facet joints. Normal central canal and bilateral lateral recesses. Normal bilateral intervertebral neural foramina. L2-3: Normal endplates. Normal disc height, hydration and morphology. Normal bilateral facet joints. Normal central canal and bilateral lateral recesses. Normal bilateral intervertebral neural foramina. L3-4: Normal endplates. Diffuse disc desiccation. Normal disc height and morphology. Normal bilateral facet joints. Normal central canal and bilateral lateral recesses. Normal bilateral intervertebral neural foramina. L4-5: Normal endplates. Diffuse disc desiccation with mild posterior disc space narrowing, small annular tear, and shallow left paracentral disc protrusion. Mild facet joint hypertrophy. Normal central canal and bilateral lateral recesses. Normal bilateral intervertebral neural foramina. L5-S1: Chronic bilateral L5 pars interarticular is defects with anterolisthesis of L5 on S1 of 9.2 mm. No change in severe bilateral foraminal stenosis with nerve root compression. Diffuse disc desiccation with mild disc space narrowing and disc bulging. Mild to moderate facet joint hypertrophy. Normal central canal and bilateral lateral recesses. Normal visualized sacral ala. Normal visualized paraspinous soft tissue structures. MRI/Spine Lumbar (Routine) IMPRESSION: 1. Multilevel degenerative changes, as described above. 2. Chronic bilateral L5 pars interarticularis defects and severe bilateral foraminal stenosis with nerve root compression Electronically Signed: Prabhakar Silva MD at 10:54 EST ,
== END | disposition home or self-care (01) ==
PROVIDERS: PCP Student in an Organized Health Care Education/Training Program; Referring Provider Anesthesiology Pain Medicine; Visit Provider Anesthesiology Pain Medicine
DX: M51.16 Intervertebral disc disorders with radiculopathy, lumbar region (principal)
CPT/HCPCS: 72148

== ENCOUNTER → 2023-12-05 | Outpatient (CLI) | payer BC, SELFPAY ==
--- NOTE | 2023-12-05 07:05 | BI_ITS ---
MAMMOGRAPHY - BILATERAL SCREENING REASON FOR EXAM: Female, 48 years old. Routine annual screening examination. PERTINENT HISTORY: Non-contributory. TECHNIQUE: Digital bilateral breast anupama (3D mammographic acquisition) in the CC and MLO projections. 2-D mediolateral oblique (MLO) and craniocaudad (CC) views of both breasts were obtained. CAD: Full Field Digital Mammography with Computer Added Detection was performed. COMPARISON: Comparison is made with prior study March 28, 2019. FINDINGS: Breast Composition: The breasts are heterogeneously dense, which may obscure small masses. There are no dominant masses or suspicious calcifications. No other significant abnormalities are identified. There has been no significant change since the prior study. BI/SCRN MAMM (CAD)W/ANUPAMA BILAT IMPRESSION: Stable bilateral screening mammogram. Yearly follow-up mammogram recommended. (A) ASSESSMENT CATEGORY: BIRADS Category 1: Negative. A letter regarding these results will be sent to the patient by the facility within 30 days. Approximately 10% of breast cancers are not detected by mammography. A normal mammogram should not delay biopsy of a clinically suspicious abnormality. [id number] Electronically Signed: Goran Vegas MD at 8:04 EDT ,
== END | disposition home or self-care (01) ==
LOC: OPBI 07:05
PROVIDERS: PCP Student in an Organized Health Care Education/Training Program; Referring Provider Nurse Practitioner Women's Health; Visit Provider Nurse Practitioner Women's Health
DX: Z12.31 Encounter for screening mammogram for malignant neoplasm of breast (principal)
CPT/HCPCS: 77063; 77067